=== PATIENT | male | born 1990 | race Caucasian/White ===

== ENCOUNTER 2023-09-09 00:43 | Emergency (ER) | payer MEDICARE, MEDICAID ==
[2023-09-09] MEDS ORDERED: Sodium Chloride 0.9% 10 ML Syringe FLUSH PRN (00:55)
[2023-09-09] MEDS ORDERED: Sodium Chloride 0.9% 1,000 ML IV ONE ×2 (00:56→02:00)
[2023-09-09] MEDS ORDERED: Acetaminophen 325 MG Tab PO ONE (01:00)
[2023-09-09 01:20] LABS: BASOPHILS ABSOLUTE AUTO 0.03 K/uL (0.00-0.20); BASOPHILS PERCENT AUTO 0.2 % (0.0-2.0); EOSINOPHILS ABSOLUTE AUTO 0.07 K/uL (0.00-0.50); EOSINOPHILS PERCENT AUTO 0.5 % (0.0-5.0); HEMATOCRIT 50.1 % (39.0-49.0); HEMOGLOBIN 17.1 g/dL (13.1-16.8); LYMPHOCYTES ABSOLUTE AUTO 0.39 K/uL (0.50-3.50); LYMPHOCYTES PERCENT AUTO 2.8 % (10.0-50.0); MEAN CORPUSCULAR HEMOGLOBIN 32.4 pg (28.2-33.3); MEAN CORPUSCULAR HGB CONC 34.1 g/dL (31.7-36.0); MEAN CORPUSCULAR VOLUME 94.9 fL (84.0-98.0); MONOCYTES ABSOLUTE AUTO 1.15 K/uL (0.00-1.00); MONOCYTES PERCENT AUTO 8.1 % (2.0-14.0); NEUTROPHILS ABSOLUTE AUTO 12.52 K/uL (1.40-7.00); NEUTROPHILS PERCENT AUTO 88.4 % (45.0-80.0); PLATELET COUNT,PLT 222 K/uL (150-350); RED BLOOD CELL COUNT 5.28 M/uL (4.33-5.41); RED CELL DISTRIBUTION WIDTH 12.4 % (11.2-14.1); WHITE BLOOD CELL COUNT,WBC 14.2 K/uL (4.0-10.2)
[2023-09-09 01:41] LABS: ALANINE AMINOTRANSFERASE,ALT 31 U/L (12-78); ALBUMIN 4.1 g/dL (3.4-5.0); ALKALINE PHOSPHATASE 93 IU/L (46-116); ASPARTATE AMNIOTRANSFERASE,AST 11 U/L (15-37); BILIRUBIN TOTAL 0.5 mg/dL (0.2-1.0); BLOOD UREA NITROGEN,BUN 7 mg/dL (7-18); CHLORIDE,CL 102 mmol/L (98-107); CREATININE 1.22 mg/dL (0.51-1.17); GLUCOSE RANDOM 109 mg/dL (70-99); MAGNESIUM 1.8 mg/dL (1.8-2.4); POTASSIUM,K 3.9 mmol/L (3.5-5.1); SODIUM,NA 142 mmol/L (136-145)
[2023-09-09 01:45] LABS: ESTIMATED GFR 79 mL/min (>=60)
[2023-09-09 01:55] LABS: CORONAVIRUS COVID-19 NAA POSITIVE (NEGATIVE); INFLUENZA A NAA NEGATIVE (NEGATIVE); INFLUENZA B NAA NEGATIVE (NEGATIVE); RESPIRATORY SYNCYTIAL VIR NAA NEGATIVE (NEGATIVE)
[2023-09-09] MEDS ORDERED: cefTRIAXone 1 GM Vial IVPUSH ONE (02:02)
== END 2023-09-09 03:15 ==
LOC: LL.ED 00:43
DX: U07.1 COVID-19 (principal); K02.9 Dental caries, unspecified; E86.0 Dehydration; G35 Multiple sclerosis; H70.91 Unspecified mastoiditis, right ear; E78.00 Pure hypercholesterolemia, unspecified; Z79.899 Other long term (current) drug therapy; Z79.82 Long term (current) use of aspirin; Z91.018 Allergy to other foods
CPT/HCPCS: 0241U; 36415; 70450; 71045; 80053; 83605; 83735; 85025; 87081; 87430; 96361; 96374; 99285; A9270; J0696; J7030